=== PATIENT | female | born 1980 | race Two or more races ===

== ENCOUNTER 2022-02-18 07:44 | Emergency (ER) | payer MEDICAID, OTHER ==
[~2022-02-18] VITALS: Ht 162.6 cm; Wt 70.0 kg
[2022-02-18] MEDS ORDERED: DIPHENHYDRAMINE 50MG/ML VIAL IV ONE (08:15)
[2022-02-18] MEDS ORDERED: DEXAMETHASONE 10 MG/ML VIAL IV ONE (08:15)
[2022-02-18] MEDS ORDERED: FAMOTIDINE 20MG/2ML VIAL IV ONE (08:15)
[2022-02-18] MEDS ORDERED: DIPH25CA83 PO (09:34)
[2022-02-18 10:08] VITALS: BP 123/72
== END 2022-02-18 10:09 | disposition home or self-care (01) ==
LOC: ER 07:44
DX: T78.40XA Allergy, unspecified, initial encounter (principal); G43.909 Migraine, unspecified, not intractable, without status migrainosus; X58.XXXA Exposure to other specified factors, initial encounter
CPT/HCPCS: 96374; 96375; 99284; J1100; J1200; J3490

== ENCOUNTER 2025-01-30 07:03 | Emergency (ER) | payer SELFPAY ==
[~2025-01-30] VITALS: Ht 165.1 cm; Wt 82.0 kg
[~2025-01-30 07:03] MED LIST: DIPH25CA83 PO
[2025-01-30 07:05] VITALS: O2SAT 98
[2025-01-30 08:06] LABS: BASOPHILS % 0.5 % (0.0-2.0); EOSINOPHILS % 2.1 % (0.0-5.0); HEMATOCRIT. 40.3 % (36.0-48.0); HEMOGLOBIN. 13.3 g/dL (12.0-16.0); LYMPHOCYTES % 41.5 % (20.0-50.0); MEAN CORPUSCULAR HEMOGLOBIN 29.8 pg (28.0-32.0); MEAN CORPUSCULAR VOLUME 90.1 fL (81.0-99.0); MONOCYTES % 5.5 % (2.0-8.0); NEUTROPHILS % 50.4 % (40.0-76.0); PLATELET 244 x1000/uL (130-400); RED BLOOD CELL COUNT 4.47 mill/uL (4.2-5.4); WHITE BLOOD COUNT 5.6 x1000/uL (4.5-11.0)
[2025-01-30 08:10] LABS: CHLORIDE 105 mEq/L (98-107); POTASSIUM 3.3 mEq/L (3.5-5.1); SODIUM 141 mEq/L (136-145)
[2025-01-30 08:11] LABS: CALCIUM 8.1 mg/dL (8.7-10.4); CARBON DIOXIDE 29 mEq/L (21-32)
[2025-01-30 08:14] LABS: HCG SCREEN NEGATIVE
[2025-01-30 08:16] LABS: CREATININE 0.8 mg/dL (0.6-1.0); GLUCOSE 132 mg/dL (70-105); UREA NITROGEN BLOOD 11 mg/dL (9-23)
[2025-01-30 09:10] VITALS: BP 113/70; PULSE 84; RESP 12; TEMP 36.2; O2SAT 100
== END 2025-01-30 09:32 | disposition home or self-care (01) ==
LOC: ER 07:03
DX: R55 Syncope and collapse (principal); G43.909 Migraine, unspecified, not intractable, without status migrainosus; Z79.899 Other long term (current) drug therapy
CPT/HCPCS: 36415; 71045; 80048; 83880; 84703; 85025; 93005; 99285